=== PATIENT | male | born 1960 | race Caucasian/White ===

== ENCOUNTER 2016-08-02 09:16 | Emergency (ER) | payer SELFPAY ==
[2016-08-02 09:27] VITALS: BP 125/90; TEMP 98.2; BMI 24.3
[2016-08-02] MEDS ORDERED: BUPRENORPHINE/NALOXONE 8 MG/2 MG FILM PACKET SL ONE (10:06)
--- NOTE | 2016-08-02 10:11 | PDOC ---
History of Present Illness - General Chief Complaint: RX Refill Stated Complaint: RX REFILL History Source: Patient Exam Limitations: No Limitations - History of Present Illness Initial Comments: 08/02/16 10:06 This is a 56 yo M with PMH of percocet abuse prescribed for hip pain, now on suboxone 8 md x2 daily (prescribed at [facility] by Dr Grimaldo), who presents due to withdrawal symptoms. He was given a 14 day supply 07/22 and he has the bottle with him. he recently moved and left pill bottle on counter and is now missing 4 pills. his last dose was 4 days ago and there is a refill in the pharmacy to be dispensed tomorrow. however, yesterday he started having severe withdrawal symptops (tremor, anxiety, panic attack, diarrhea, abd pain, nausea) and is afraid that he will use opiates today if he doesn't get a dose of suboxone. He missed 2 pills once a year ago, having been on suboxone a yr and a half. He denies selling of abusing suboxone. He denies cheat pain, sob, cough, palpitations, loc, numbness, weakness Past History - Travel Traveled outside of the country in the last 30 days: No Close contact w/someone who was outside of country & ill: No - Past Medical History Allergies/Adverse Reactions: Allergies Allergy/AdvReac Type Severity Reaction Status Date / Time No Known Allergies Allergy Verified 08/02/16 09:27 Home Medications: Ambulatory Orders Buprenorphine HCl/Naloxone HCl [Suboxone 8 mg-2 mg Sl Tablets] 1 each SL DAILY 08/02/16 Diabetes: No HTN: No Other medical history: arthritis left hip on opiate salima for prescribed med abuse (percocet) - Surgical History Abdominal Surgery: Yes (HERNIA REPAIR) - Psycho/Social/Smoking Cessation Hx Anxiety: No Suicidal Ideation: No Smoking Status: No Smoking History: Never smoked Number of Cigarettes Smoked Daily: 3 Information on smoking cessation initiated: No Hx Alcohol Use: No Drug/Substance Use Hx: No Substance Use Type: None Review of Systems - Review of Systems Constitutional: No: Chills, Fever, Unexplained wgt Loss HEENTM: No: Blurred Vision, Nose Congestion, Nose Bleeding, Throat Pain Respiratory: No: Cough, Orthopnea, Shortness of Breath Cardiac (ROS): No: Chest Pain, Edema, Irregular Heart Rate, Palpitations, Syncope ABD/GI: Yes: Diarrhea, Nausea, Poor Appetite, Abdominal cramping. No: Abdominal Distended, Vomiting : No: Dysuria Musculoskeletal: No: Muscle Weakness Integumentary: No: Pruritus, Rash Neurological: No: Headache, Numbness, Paresthesia, Seizure Psychiatric: Yes: Anxiety Endocrine: No: Change in Weight Hematologic/Lymphatic: No: Anemia, Blood Clots, Easy Bleeding, Easy Bruising All Other Systems: Reviewed and Negative *Physical Exam - Vital Signs Last Vital Signs Temp Pulse Resp BP Pulse Ox 98.2 F 106 H 18 125/90 100 08/02/16 09:22 08/02/16 09:22 08/02/16 09:22 08/02/16 09:22 08/02/16 09:22 - Physical Exam Comments: 08/02/16 10:12 GENERAL: MILD DISTRESS, UNCOMFORTABLE, ANXIOUS, TREMOROUS HEENT: NORMOCEPHALIC, ATRAUMATIC, PERRLA, NORMAL PUPIL SIZE, EOMI CV: RRR S1S2 NO JVD, NO LE EDEMA PULM: CTA B/L GI: SOFT, MILDLY TENDER, NONDISTENDED, NORMOACTIVE BOWEL SOUNDS, NO MASS NEURO: CT INTACT, SENSATION INTACT, 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 Medical Decision Making - Medical Decision Making 08/02/16 10:15 UNABLE TO REACH PHARMACY BUT PRESCRIPTION BOTTLE APPEARS AUTHENTIC AND CONTROLLED SUBSTANCE PRESCRIBER RECORDS REVIEWED PATIENT HAS NO HISTORY OF DRUG SEEKING WILL GIVE ONE TIME DOSE OF SUBOXONE AND REFER TO [facility] FOR F/U TOMORROW *DC/Admit/Observation/Transfer Diagnosis at time of Disposition: Drug withdrawal - Discharge Dispostion Admit: No - Patient Instructions Additional Instructions: WE ARE GIVING YOU ONE DOSE OF SUBOXONE. PLEASE FOLLOW UP IN [facility] TOMORROW. BE CAREFUL WITH YOUR SOBOXONE.
--- NOTE | 2016-08-02 10:12 | PDOC ---
Attending Attestation - Resident Resident Name: Deanna Mari - ED Attending Attestation I have performed the following: I have examined & evaluated the patient, The case was reviewed & discussed with the resident, I agree w/resident's findings & plan, Exceptions are as noted - HPI HPI: 08/02/16 10:07 56 year old male c/ hx of heroin abuse p/w ran out of suboxone. Pt is typically a patient of the [facility]. Has bottle with him. Has 28 slips prescribed and filled on 07/22. He ran out, states lost 4 slips in process of move. Absolutely denies over taking the drug. He reports feeling in withdrawal symptoms. Feels anxious. - Physicial Exam PE: 08/02/16 10:08 GENERAL: Awake, alert, and fully oriented, in no acute distress. HEAD: No signs of trauma EYES: PERRLA, EOMI, sclera anicteric, conjunctiva clear ENT: Auricles normal inspection, hearing grossly normal, nares patent, oropharynx clear without exudates. NECK: Normal ROM, supple, no lymphadenopathy, JVD, or masses LUNGS: Breath sounds equal, clear to auscultation bilaterally. No wheezes, and no crackles HEART: Regular rate and rhythm, normal S1 and S2, no murmurs, rubs or gallops ABDOMEN: Soft, nontender, normoactive bowel sounds. No guarding, no rebound. No masses EXTREMITIES: Normal range of motion, no edema. No clubbing or cyanosis. No cords, erythema, or tenderness NEUROLOGICAL: Cranial nerves II through XII grossly intact. Normal speech, normal gait SKIN: Warm, Dry, normal turgor, no rashes or lesions noted. - Medical Decision Making 08/02/16 10:09 MEDIA REPORTER registry checked. Reference #: [id number]. Only history of tramadol 50 mg 14 day supply from 03/16/2016. No other narcotics noted. [place] and [place] also checked. No further prescriptions. I had called the [facility] pharmacy but they are closed. Will give patient benefit of doubt given checked MEDIA REPORTER registry. Will give 1 slip of 8 mg suboxone here. Will not prescribe the medication. I strongly suggested that he follows up with the [facility] for suboxone refills. I instructed him that these medications are strongly regulated and the patient MUST count all of his medications. The patient verbalizes understanding.
[2016-08-02 11:03] VITALS: PULSE 91
== END 2016-08-02 11:03 | disposition home or self-care (01) ==
LOC: JER 09:16
DX: F11.23 Opioid dependence with withdrawal (principal)
CPT/HCPCS: 99281-25

== ENCOUNTER → 2016-08-27 | Day surgery (SDC) | payer OTHER ==
[~2016-08-27] MED LIST: BUPIVACAINE HCL/PF 0.5% (5MG/ML) 10 ML VIAL ONE
[2016-08-27 09:02] LABS: BASOPHIL 1.1 % (0-2.0); EOSINOPHIL 7.4 % (0-4.5); MCH 31.2 pg (25.7-33.7); MCHC 34.4 g/dl (32.0-35.9); MEAN CELL VOLUME 90.8 fl (80-96); MEAN PLT VOLUME 7.8 fl (7.5-11.1); NEUTROPHILS 40.6 % (42.8-82.8); PLATELET COUNT 150 K/MM3 (134-434); WHITE BLOOD COUNT 4.3 K/mm3 (4.0-10.0)
[2016-08-27 09:15] LABS: INR 1.07 (0.82-1.09); PROTHROMBIN TIME (PATIENT) 11.8 SEC (9.98-11.88)
== END | disposition home or self-care (01) ==
LOC: JRADIR 08:30
PROVIDERS: ATTEND Specialist
PROC: 3E0U33Z Introduction of Anti-inflammatory into Joints, Percutaneous Approach (ICD-10-PCS; principal; 2016-08-27)
PROC: BQ11ZZZ Fluoroscopy of Left Hip (ICD-10-PCS; 2016-08-27)
DX: M16.12 Unilateral primary osteoarthritis, left hip (principal); M25.552 Pain in left hip
CPT/HCPCS: 27093; 36415; 73525-TC; 76000-TC; 85025; 85610

== ENCOUNTER → 2017-01-12 | Day surgery (SDC) | payer OTHER ==
[2017-01-12 10:06] LABS: BASOPHIL 1.6 % (0-2.0); EOSINOPHIL 9.1 % (0-4.5); MCH 30.8 pg (25.7-33.7); MCHC 33.7 g/dl (32.0-35.9); MEAN CELL VOLUME 91.5 fl (80-96); NEUTROPHILS 32.3 % (42.8-82.8); PLATELET COUNT 180 K/MM3 (134-434); RDW 12.9 % (11.9-15.9)
[2017-01-12 10:16] LABS: INR 0.93 (0.82-1.09); PROTHROMBIN TIME (PATIENT) 10.5 SEC (9.98-11.88)
== END | disposition home or self-care (01) ==
LOC: JRADIR 09:33
PROVIDERS: ATTEND Specialist
PROC: BW11YZZ Fluoroscopy of Abdomen and Pelvis using Other Contrast (ICD-10-PCS; principal; 2017-01-12)
PROC: BQ01YZZ Plain Radiography of Left Hip using Other Contrast (ICD-10-PCS; 2017-01-12)
DX: M16.12 Unilateral primary osteoarthritis, left hip (principal)
CPT/HCPCS: 27093; 36415; 73525-TC; 77002-TC; 85025; 85610